=== PATIENT | female | born 1995 | race Caucasian/White ===

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

== ENCOUNTER 2018-06-08 14:27 | Emergency (ER) | payer MEDICAID ==
[2018-06-08 14:47] VITALS: BP 110/63
--- NOTE | 2018-06-08 15:20 | RADIOLOGY REPORT (SQ) ---
EXAM DESCRIPTION: FOOT RIGHT COMPLETE COMPLETED DATE/TIME: 06/08/2018 3:11 pm REASON FOR STUDY: Flipped last night; Pain and swelling to toes COMPARISON: None. NUMBER OF VIEWS: Three views. TECHNIQUE: AP, lateral and oblique radiographic images acquired of the right foot. LIMITATIONS: None. FINDINGS: MINERALIZATION: Normal. BONES: No acute fracture or dislocation. No worrisome bone lesions. JOINTS: No effusions. SOFT TISSUES: No soft tissue swelling. No foreign body. OTHER: No other significant finding. IMPRESSION: NEGATIVE STUDY OF THE RIGHT FOOT. NO RADIOGRAPHIC EVIDENCE OF ACUTE INJURY. TECHNICAL DOCUMENTATION: JOB ID: [id number] [employer]- All Rights Reserved Reading location - IP/workstation name: [email or web address]
[2018-06-08] MEDS ORDERED: IBUPROFEN 600 MG TABLET PO ONE (15:39)
--- NOTE | 2018-06-08 15:48 | ER Document Report ---
ED Extremity Problem, Lower - General Chief Complaint: Foot Injury Stated Complaint: RIGHT FOOT INJURY Time Seen by Provider: 06/08/18 15:18 Mode of Arrival: Ambulatory Information source: Patient Notes: 3-year-old female presents to ED for complaint of pain to the right foot and toes. 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 She states that it has been painful to walk on her foot since then. She is alert oriented respirations regular and unlabored speaking in full sentences and is able to walk with a limp. There is minimal swelling to the foot no bruising no deformity noted. TRAVEL OUTSIDE OF THE [place] IN LAST 30 DAYS: No - HPI Location: Foot - Right Occurred: Yesterday Where: Work Onset/Duration: Sudden, Persistent Quality of pain: Achy, Dull Severity: Moderate Pain Level: 4 Context: Wearing shoes Recent injury: Yes Associated symptoms: Painful ambulation Exacerbated by: Hanging down, Movement, Walking Relieved by: Elevation, Ice, Rest - Related Data Allergies/Adverse Reactions: No Known Allergies Allergy (Verified 06/08/18 14:32) Past Medical History - General Information source: Patient - Social History Smoking Status: Current Every Day Smoker Cigarette use (# per day): Yes - 1/2-1 pack/day Chew tobacco use (# tins/day): No Smoking Education Provided: Yes - 4 minutes Frequency of alcohol use: Social - 1-2 times a week Drug Abuse: None Occupation: Dancer Lives with: Family Family History: Reviewed & Not Pertinent Patient has suicidal ideation: No Patient has homicidal ideation: No - Past Medical History Cardiac Medical History: Reports: None Pulmonary Medical History: Reports: None EENT Medical History: Reports: None Neurological Medical History: Reports: None Endocrine Medical History: Reports: None Renal/ Medical History: Reports: None Malignancy Medical History: Reports: None GI Medical History: Reports: None Musculoskeletal Medical History: Reports Hx Musculoskeletal Trauma Skin Medical History: Reports Hx Cellulitis Psychiatric Medical History: Reports: Hx Bipolar Disorder, Hx Depression Traumatic Medical History: Reports: Hx Fractures - Ankle Infectious Medical History: Reports: None - Immunizations Hx Diphtheria, Pertussis, Tetanus Vaccination: Yes - 07/10/13 Hx Pneumococcal Vaccination: 07/10/13 Review of Systems - Review of Systems Constitutional: No symptoms reported EENT: No symptoms reported Cardiovascular: No symptoms reported Respiratory: No symptoms reported Gastrointestinal: No symptoms reported Genitourinary: No symptoms reported Female Genitourinary: No symptoms reported Musculoskeletal: Other - Pain minimal swelling to right foot Skin: No symptoms reported Hematologic/Lymphatic: No symptoms reported Neurological/Psychological: No symptoms reported -: Yes All other systems reviewed and negative Physical Exam - Vital signs Vitals: Temp Pulse Resp BP Pulse Ox 98.7 F 80 16 110/63 97 06/08/18 14:46 06/08/18 14:46 06/08/18 14:46 06/08/18 14:46 06/08/18 14:46 Interpretation: Normal - General General appearance: Appears well, Alert - HEENT Head: Normocephalic, Atraumatic Eyes: Normal Pupils: PERRL - Respiratory Respiratory status: No respiratory distress Chest status: Nontender Breath sounds: Normal Chest palpation: Normal - Cardiovascular Rhythm: Regular Heart sounds: Normal auscultation Murmur: No - Abdominal Inspection: Normal Distension: No distension Bowel sounds: Normal Tenderness: Nontender Organomegaly: No organomegaly - Back Back: Normal, Nontender - Extremities General upper extremity: Normal inspection, Nontender, Normal color, Normal ROM, Normal temperature General lower extremity: Normal color, Normal ROM, Normal temperature. No: Ochoa's sign Foot: Tender, Ecchymosis, Edema - Minimal, Metatarsal compress. pain - minimal, No evidence of FB. No: Abrasion, Deformity, Instability, Laceration, Nail injury, Navicular tenderness, Puncture wound, Tender 5th metatarsal, Unable to bear weight - Painful ambulation - Neurological Neuro grossly intact: Yes Cognition: Normal Orientation: AAOx4 [place] Coma Scale Eye Opening: Spontaneous Valeria Coma Scale Verbal: Oriented Valeria Coma Scale Motor: Obeys Commands [place] Coma Scale Total: 15 Speech: Normal Motor strength normal: LUE, RUE, LLE, RLE Sensory: Normal - Psychological Associated symptoms: Normal affect, Normal mood - Skin Skin Temperature: Warm Skin Moisture: Dry Skin Color: Ecchymosis - Minimal bruising Course - Re-evaluation Re-evalutation: 06/08/18 15:49 Discussed x-rays with patient. X-rays show that there is no broken bones. Patient stated she would like to go back to work tomorrow. Elevation ice and ibuprofen discussed with patient. Patient verbalized understanding and agreement with treatment plan patient was discharged home. - Vital Signs Vital signs: Temp Pulse Resp BP Pulse Ox 98.7 F 80 16 110/63 97 06/08/18 14:46 06/08/18 14:46 06/08/18 14:46 06/08/18 14:46 06/08/18 14:46 - Diagnostic Test Radiology reviewed: Image reviewed, Reports reviewed Discharge - Discharge Clinical Impression: Contusion of right foot including toes Qualifiers: Encounter type: initial encounter Qualified Code(s): S90.31XA - Contusion of right foot, initial encounter; S90.121A - Contusion of right lesser toe(s) without damage to nail, initial encounter Condition: Stable Disposition: HOME, SELF-CARE Instructions: Family Physicians / Practices Additional Instructions: CONTUSION: Your injury has resulted in a contusion -- a crushing of the deep tissues. No injury to important structures was detected during the physician's exam. Contusions vary in the amount of pain they cause, and in the length of time required for healing. Typically, the area will become bruised, and will remain painful to touch for two or three weeks. However, most patients are back to working and playing within a few days. After the initial period of rest and cold-packs, your symptoms (together with the doctor's recommendations) will determine how rapidly you can get back to full activity. Usually this means "do what feels okay, but don't do things that hurt." If re-examination was recommended, it's important to follow up as instructed. Call the doctor or return any time if pain increases, if swelling becomes severe, if you develop numbness or weakness in an injured extremity, or if any other alarming symptoms occur. USE OF TYLENOL (ACETAMINOPHEN): Acetaminophen may be taken for pain relief or fever control. It's much safer than aspirin, offering a wider range of "safe" dosages. It is safe during . Some brand names are Tylenol, Panadol, Datril, Anacin 3, Tempra, and Liquiprin. Acetaminophen can be repeated every four hours. The following are maximum recommended dosages: WEIGHT Dose Drops Elixir Ch ewable(80mg) (LBS.) drprs=droppers tsp=teaspoon 6 40 mg 0.4 ml (1/2) 6-11 80 mg 0.8 ml (full) tsp 1 tab 12-16 120 mg 1 1/2 drprs 3/4 tsp 1 1/2 tabs 17-23 160 mg 2 drprs 1 tsp 2 tabs 24-30 240 mg 3 drprs 1 1/2 tsp 3 tabs 30-35 320 mg 2 tsp 4 tabs 36-41 360 mg 2 1/4 tsp 4 1/2 tabs 42-47 400 mg 2 1/2 tsp 5 tabs 48-53 480 mg 3 tsp 6 tabs 54-59 520 mg 3 1/4 tsp 6 1/2 tabs 60-64 560 mg 3 1/2 tsp 7 tabs 65-70 600 mg 3 3/4 tsp 7 1/2 tabs 71-76 640 mg 4 tsp 8 tabs 77-82 720 mg 4 1/2 tsp 9 tabs 83-88 800 mg 5 tsp 10 tabs >89 pounds or adults 650 mg to 900 mg Acetaminophen can be repeated every four hours. Maximum dose not to exceed 4000 mg a day. These maximum recommended dosages are slightly higher than the dosages written on the product container, but these dosages are very safe and below the toxic dosage for acetaminophen. ICE & ELEVATION: Apply ice packs frequently against the painful area. Many different schedules are recommended, such as "20 minutes on, 20 minutes off" or "one hour ice, two hours rest." If you need to work, you may need to go longer between ice treatments. You should plan to have the area ice packed AT LEAST one-fourth of the time. The ice should be applied over the wrap, tape, or splint, or over a layer of cloth -- not directly against the skin. Some ice bags have a built-in cloth and can be put directly on the skin. Your injured part should be elevated as much as possible over the next 48 hours. Try to keep the injury above the level of the heart. Avoid use of the injured area. Elevation and rest will decrease the swelling. USE OF CPXD-NDC-CUBGPGE IBUPROFEN: Ibuprofen (Advil, Nuprin, Medipren, Motrin IB) is a medication for fever and pain control. In addition, it has anti- inflammatory effects which may be beneficial, especially in the treatment of injuries. It's best to take ibuprofen with food. Persons with ulcer disease or allergy to aspirin should notify their physician of this before taking ibuprofen. Ibuprofen can be given every four to six hours, for a total of four doses daily. Age Pain or fever dose Antiinflammatory dose 6-8 yr 200 mg (1 tab) 200 mg (1 tab) 9-11 yr 200 mg (1 tab) 200-400 mg (1-2 tab) 11-14 yr 200-400 mg (1-2 tab) 400 mg (2 tab) 15-adult 400 mg (2 tab) 600 mg (3 tab) FOLLOW-UP CARE: If you have been referred to a physician for follow-up care, call the physicians office for an appointment as you were instructed or within the next two days. If you experience worsening or a significant change in your symptoms, notify the physician immediately or return to the Emergency Department at any time for re-evaluation. Forms: Smoking Cessation Education, Return to Work Referrals: [facility] [Provider Group] - Follow up as needed
== END 2018-06-08 15:45 | disposition home or self-care (01) ==
LOC: ER 14:27
PROC: HZ31ZZZ Individual Counseling for Substance Abuse Treatment, Behavioral (ICD-10-PCS; principal; 2018-06-08)
DX: S90.31XA Contusion of right foot, initial encounter (principal); S90.121A Contusion of right lesser toe(s) without damage to nail, initial encounter; W22.09XA Striking against other stationary object, initial encounter; Y93.41 Activity, dancing; Y99.0 Civilian activity done for income or pay; F17.210 Nicotine dependence, cigarettes, uncomplicated; Z87.81 Personal history of (healed) traumatic fracture
CPT/HCPCS: 99406; 99283; 73630; J3490

== ENCOUNTER 2018-07-13 03:29 | Emergency (ER) | payer MEDICAID ==
[2018-07-13] MEDS ORDERED: LIDOCAINE 4% TRANSPARENT DRESSING 5 GM KIT TP ONE (05:46)
[2018-07-13] MEDS ORDERED: SULFAMETHOXAZOLE/TRIMETHOPRIM 800-160 MG TABLET PO ONE (05:47)
[2018-07-13] MEDS ORDERED: CEPHALEXIN 500 MG CAPSULE PO ONE (05:47)
--- NOTE | 2018-07-13 05:48 | ER Document Report ---
HPI - HPI Time Seen by Provider: 07/13/18 05:37 Pain Level: 4 Context: Patient is a 23-year-old female that comes to the emergency department for chief complaint of pain, redness, swelling over the left face. She states she has had an irritated area she thought was a pimple therefore a while but over the past 2 days it has become tender, red, and spread. She denies fever or chills. She has had abscesses before. She denies any other complaints. She denies pregn helen. LMP was last month. She is currently being treated for hepatitis C. - CONSTITUTIONAL Constitutional: DENIES: Fever, Chills - NEURO Neurology: REPORTS: Headache - REPRODUCTIVE LMP: 06/03 Reproductive: DENIES: : Past Medical History - General Information source: Patient - Social History Smoking Status: Current Some Day Smoker Lives with: Spouse/Significant other Family History: Reviewed & Not Pertinent Patient has suicidal ideation: No Patient has homicidal ideation: No Renal/ Medical History: Denies: Hx Peritoneal Dialysis Musculoskeletal Medical History: Reports Hx Musculoskeletal Trauma Skin Medical History: Reports Hx Cellulitis Psychiatric Medical History: Reports: Hx Bipolar Disorder, Hx Depression Traumatic Medical History: Reports: Hx Fractures - Ankle Infectious Medical History: Reports: Hx Hepatitis - Immunizations Hx Diphtheria, Pertussis, Tetanus Vaccination: Yes - 07/10/13 Hx Pneumococcal Vaccination: 07/10/13 Vertical Provider Document - CONSTITUTIONAL General Appearance: WD/WN, No Apparent Distress - INFECTION CONTROL TRAVEL OUTSIDE OF THE [place] IN LAST 30 DAYS: No - HEENT HEENT: Atraumatic, Normal ENT Exam, Normocephalic, PERRLA. negative: Conjuctival Injection - NECK Neck: Normal Inspection - RESPIRATORY Respiratory: Breath Sounds Normal, No Respiratory Distress - CARDIOVASCULAR Cardiovascular: Regular Rate, Regular Rhythm - GI/ABDOMEN Gastrointestinal: Abdomen Soft, Abdomen Non-Tender - BACK Back: Normal Inspection - MUSCULOSKELETAL/EXTREMETIES Musculoskeletal/Extremeties: MAEW, FROM, Non-Tender - NEURO Level of Consciousness: Awake, Alert, Appropriate - DERM Integumentary: Abscess - Left zygomatic area with a very small area of induration and fluctuance with some surrounding erythema consistent with cellulitis extending up towards the bottom of the left eyelid. Course - Re-evaluation Re-evalutation: Patient does have evidence of a small abscess over the zygomatic area with some surrounding cellulitis extending up to the bottom of the left eyelid but not including the eye. No visual concerns or symptoms reported. No fever. Patient is very well-appearing otherwise. Discussed with patient, decision was made to perform incision and drainage with an 18-gauge needle, this was performed, I did express purulent drainage, patient was placed on antibiotics, she was given instructions, follow-up and recommendations, and strict return precautions which were discussed in detail. Patient and significant other state understanding and agreement. - Vital Signs Vital signs: Temp Pulse Resp BP Pulse Ox 98.2 F 74 16 116/60 100 07/13/18 03:36 07/13/18 03:36 07/13/18 03:36 07/13/18 03:36 07/13/18 03:36 Procedures - Incision and Drainage Left zygomatic area Type: Single Anesthetic type: Other - LMX I&D procedure: Shurclens applied, Sterile dressing applied Incision Method: Incision made with needle Amount/type of drainage: Small amount of purulent drainage and small amount of bleeding Discharge - Discharge Clinical Impression: Cellulitis and abscess of face Condition: Stable Disposition: HOME, SELF-CARE Additional Instructions: There is an abscess on the face which has been drained, keep this area clean, clean with soap and water, apply absorbent dressing over the area. Take your antibiotics as prescribed to completion. Follow-up with primary care. Return immediately if you worsen including spreading redness, increased pain, fever/chills, or any other concerning symptoms. Prescriptions: Cephalexin Monohydrate [Keflex 500 mg Capsule] 500 mg PO QID #28 capsule Sulfamethoxazole/Trimethoprim [Bactrim Ds Tablet] 1 each PO BID #14 tablet Forms: Return to Work Referrals: ELIANE HOLLIS MD [Primary Care Provider] - Follow up as needed
[2018-07-13 06:52] VITALS: BP 112/66
== END 2018-07-13 06:58 | disposition home or self-care (01) ==
LOC: ER 03:29
PROC: 0H91XZZ Drainage of Face Skin, External Approach (ICD-10-PCS; principal; 2018-07-13)
DX: L02.01 Cutaneous abscess of face (principal); L03.211 Cellulitis of face; R51 Headache; R22.0 Localized swelling, mass and lump, head; F17.200 Nicotine dependence, unspecified, uncomplicated
CPT/HCPCS: 99283; 10060; J3490 ×2

== ENCOUNTER 2018-07-19 03:05 | Emergency (ER) | payer MEDICAID ==
[2018-07-19 03:50] LABS: ABSOLUTE EOSINOPHILS # (AUTO) 0.5 10^3/uL (0.0-0.6); ABSOLUTE LYMPHOCYTES (AUTO) 3.2 10^3/uL (0.5-4.7); ABSOLUTE MONOCYTES (AUTO) 0.6 10^3/uL (0.1-1.4); ABSOLUTE NEUT (AUTO) 2.8 10^3/uL (1.7-8.2); BASOPHILS % (AUTO) 0.2 % (0-2); EOSINOPHILS % (AUTO) 6.7 % (0-6); HEMATOCRIT 41.9 % (36.0-47.0); HEMOGLOBIN 14.5 g/dL (12.0-15.5); LYMPHOCYTES % (AUTO) 45.1 % (13-45); MEAN CORPUSCULAR HEMOGLOBIN 31.5 pg (27.0-33.4); MEAN CORPUSCULAR HGB CONC 34.6 g/dL (32.0-36.0); MEAN CORPUSCULAR VOLUME 91 fl (80-97); MONOCYTES % (AUTO) 8.6 % (3-13); PLATELET COUNT 269 10^3/uL (150-450); RED BLOOD COUNT 4.61 10^6/uL (3.72-5.28); RED CELL DISTRIBUTION WIDTH 12.9 % (11.5-14.0); SEGMENTED NEUTROPHILS % (AUTO) 39.4 % (42-78); TOTAL CELLS COUNTED % (AUTO) 100 %; WHITE BLOOD COUNT 7.1 10^3/uL (4.0-10.5)
[2018-07-19 03:55] LABS: APPEARANCE,URINE SLIGHTLY-CLOUDY; BILIRUBIN,URINE NEGATIVE (NEGATIVE); COLOR,URINE YELLOW; GLUCOSE, URINE NEGATIVE (NEGATIVE); KETONES,URINE NEGATIVE (NEGATIVE); LEUKOCYTE ESTERASE,URINE SMALL (NEGATIVE); NITRITE,URINE NEGATIVE (NEGATIVE); PROTEIN,URINE 30 mg/dL (NEGATIVE); URINE SPECIFIC GRAVITY 1.036
--- NOTE | 2018-07-19 05:04 | ER Document Report ---
ED General - General Chief Complaint: Vag Bleeding, +preg <12wks Stated Complaint: POSSIBLE MISCARRAIGE Time Seen by Provider: 07/19/18 03:43 Primary Care Provider: ELIANE HOLLIS MD [Primary Care Provider] - Follow up as needed TRAVEL OUTSIDE OF THE [place] IN LAST 30 DAYS: No - HPI Notes: Patient presents to the emergency department for evaluation. She states she had her last menstrual period on June 03. She states she took 3 tests last week and they were positive. She states earlier today she had some bright red vaginal bleeding. It was only a small amount. She denies any pain at this time. Her bleeding was at 1400 hrs. She has not followed up with OB. - Related Data Allergies/Adverse Reactions: No Known Allergies Allergy (Verified 07/19/18 03:11) Past Medical History - General Information source: Patient Last Menstrual Period: 06/03/18 - Social History Smoking Status: Former Smoker Frequency of alcohol use: Social Drug Abuse: None Family History: Reviewed & Not Pertinent Patient has suicidal ideation: No Patient has homicidal ideation: No Renal/ Medical History: Denies: Hx Peritoneal Dialysis GI Medical History: Reports: Hx Hepatitis Musculoskeletal Medical History: Reports Hx Musculoskeletal Trauma Skin Medical History: Reports Hx Cellulitis Psychiatric Medical History: Reports: Hx Bipolar Disorder, Hx Depression Traumatic Medical History: Reports: Hx Fractures - Ankle Infectious Medical History: Reports: Hx Hepatitis - Immunizations Hx Diphtheria, Pertussis, Tetanus Vaccination: Yes - 07/10/13 Hx Pneumococcal Vaccination: 07/10/13 Review of Systems - Review of Systems Constitutional: No symptoms reported EENT: No symptoms reported Cardiovascular: No symptoms reported Respiratory: No symptoms reported Gastrointestinal: No symptoms reported Genitourinary: No symptoms reported Female Genitourinary: See HPI Musculoskeletal: No symptoms reported Skin: No symptoms reported Neurological/Psychological: No symptoms reported Physical Exam - Vital signs Vitals: Temp Pulse Resp BP Pulse Ox 97.9 F 78 16 125/67 98 07/19/18 03:09 07/19/18 03:09 07/19/18 03:09 07/19/18 03:09 07/19/18 03:09 - Notes Notes: Vital signs reviewed, please refer to chart. Patient is normocephalic, atraumatic. Pupils equal round, reactive to light. Neck is supple without meningismus. Heart is regular rate and rhythm. Lungs are clear to auscultation bilaterally. Abdomen is soft, nontender, normoactive bowel sounds throughout. Extremities without cyanosis, clubbing, edema. Peripheral pulses are equal. Skin is warm and dry. Patient is awake, alert, neurological exam is nonfocal. Course - Re-evaluation Re-evalutation: 07/19/18 05:02 Patient presents to the emergency department for evaluation. She reports 3+ home test last week. She states her last menstrual period was June 03. Laboratory investigations confirm a completely negative beta hCG on serum. It is difficult to reconcile this with positive test at home. My suspicion is that she may have administered these tests incorrectly. At any rate, she has no evidence of recent at this time. We will refer her on to [facility]. She is told to follow complete pelvic rest instructions. She is no longer bleeding at this time. She is to return to the ED with worsening or new concerning symptoms of any sort. - Vital Signs Vital signs: Temp Pulse Resp BP Pulse Ox 97.9 F 78 16 125/67 98 07/19/18 03:09 07/19/18 03:09 07/19/18 03:09 07/19/18 03:09 07/19/18 03:09 - Laboratory Result Diagrams: 07/19/18 03:33 Laboratory results interpreted by me: 07/19/18 07/19/18 03:33 03:33 Seg Neutrophils % 39.4 L Lymphocytes % 45.1 H Eosinophils % 6.7 H Urine Protein 30 H Urine Blood LARGE H Urine Urobilinogen 4.0 H Ur Leukocyte Esterase SMALL H Urine Ascorbic Acid 40 H Discharge - Discharge Clinical Impression: Abnormal uterine and vaginal bleeding, unspecified Condition: Stable Disposition: HOME, SELF-CARE Instructions: Vaginal Bleeding ([facility]) Additional Instructions: Follow complete pelvic rest instructions -no douching, no tampons, no sexual intercourse. Follow-up with [facility]. If you develop bleeding worse than 1 pad an hour, or any other new or concerning symptoms, return to the emergency department for evaluation. Referrals: ELIANE HOLLIS MD [Primary Care Provider] - Follow up as needed ASTRID FOX MD [ACTIVE STAFF] - Follow up as needed
[2018-07-19 05:20] VITALS: BP 101/53
== END 2018-07-19 05:19 | disposition home or self-care (01) ==
LOC: ER 03:05
DX: N93.9 Abnormal uterine and vaginal bleeding, unspecified (principal); Z87.891 Personal history of nicotine dependence
CPT/HCPCS: 36415; 81001; 84702; 85025; 86900; 86901; 99284

== ENCOUNTER 2018-08-27 06:13 | Emergency (ER) | payer SELFPAY ==
[2018-08-27] MEDS ORDERED: BENZONATATE 100 MG CAPSULE PO ONE (06:58)
[2018-08-27] MEDS ORDERED: IBUPROFEN 600 MG TABLET PO ONE (06:58)
--- NOTE | 2018-08-27 07:04 | ER Document Report ---
Addendum entered and electronically signed by SANDY BELL FNP 08/27/18 08:09: Discharge - Discharge Clinical Impression: Cough, Congestion of respiratory tract, Bronchitis Condition: Stable Disposition: HOME, SELF-CARE Additional Instructions: Today you were seen in the emergency department for cough. We have obtained a chest x-ray which was negative at this time. Your diagnosis today is acute bronchitis. Bronchitis can last 3 to 6 weeks. Please avoid cigarette smoking or being around smoke or other allergens as this can make your symptoms worse. It is normal to have cough with sputum that is clear, yellow, green, having body aches, fever and chills. Take hjfk-rxr-ndthbei ibuprofen or Tylenol as needed for your pain or discomfort. I am prescribing you Tessalon Perles, this is a medication that you can take every 8 hours as needed for your cough. Continue to use obrl-mlj-vuzxnjm decongestions. Please return to the emergency department if you have any worsening symptoms to include shortness of breath, chest pain, or any worsening signs or symptoms. Bronchitis You have acute bronchitis. This disease is an infection or inflammation of the air passageways in your lungs. Symptoms usually include cough, low grade fever, shortness of breath, and wheezing. The cough usually persists for a couple of weeks. Most cases of bronchitis get better without antibiotics. We prescribe antibiotics when we believe bacteria are damaging your airways, or if there's high risk the bronchitis will worsen into pneumonia. Increase your fluid intake. A cool mist humidifier may make your lungs more comfortable. An expectorant (cough medicine that loosens phlegm) can help. If you smoke, STOP!!! Recovery from bronchitis can be somewhat slow, but you should see improvement within a day or two. Repeated episodes of bronchitis may result in lung damage -- for example, chronic bronchitis, recurrent pneumonias, or emphysema. Call the doctor if you develop increasing fever, shortness of breath, chest pain, bloody sputum, or otherwise worsen. If you have not improved at all after several days, contact the physician. Prescriptions: Benzonatate [Tessalon Perles 100 mg Capsule] 100 mg PO Q8HP PRN #40 capsule PRN Reason: Referrals: ELIANE HOLLIS MD [Primary Care Provider] - Follow up as needed Original Note: HPI - HPI Time Seen by Provider: 08/27/18 06:40 Pain Level: 5 Context: Patient is a 23-year-old female who presents to the emergency department with a chief complaint of cough. Patient states that she has had a nonproductive cough for 4 days, congestion with significant amount of nasal drainage. Patient complains of bilateral ear pain, sore throat, and nausea. Patient has had chills but is unsure if she has had a fever. Has attempted jdvx-nwr-tphluty Mucinex without relief. Patient reports a history of childhood asthma but no current medical problems. - REPRODUCTIVE Reproductive: DENIES: : Past Medical History - General Information source: Patient - Social History Smoking Status: Current Every Day Smoker Frequency of alcohol use: Social Drug Abuse: Marijuana Lives with: Spouse/Significant other Family History: Reviewed & Not Pertinent - Past Medical History Cardiac Medical History: Reports: None Pulmonary Medical History: Reports: None EENT Medical History: Reports: None Neurological Medical History: Reports: None Endocrine Medical History: Reports: None Renal/ Medical History: Reports: None. Denies: Hx Peritoneal Dialysis Malignancy Medical History: Reports: None GI Medical History: Reports: Hx Hepatitis Musculoskeletal Medical History: Reports Hx Musculoskeletal Trauma Skin Medical History: Reports Hx Cellulitis Psychiatric Medical History: Reports: Hx Bipolar Disorder, Hx Depression Traumatic Medical History: Reports: Hx Fractures - Ankle Infectious Medical History: Reports: Hx Hepatitis Surgical Hx: Negative - Immunizations Hx Diphtheria, Pertussis, Tetanus Vaccination: Yes - 07/10/13 Hx Pneumococcal Vaccination: 07/10/13 Vertical Provider Document - CONSTITUTIONAL Agree With Documented VS: Yes Exam Limitations: No Limitations General Appearance: No Apparent Distress - INFECTION CONTROL TRAVEL OUTSIDE OF THE [place] IN LAST 30 DAYS: No - HEENT HEENT: Atraumatic, Normocephalic, PERRLA Notes: Right ear canal slightly reddened, TM normal. - NECK Neck: Normal Inspection Notes: No lymphadenopathy. - RESPIRATORY Respiratory: Rhonchi - Rhonchi cleared with cough - CARDIOVASCULAR Cardiovascular: Regular Rate - GI/ABDOMEN Gastrointestinal: Abdomen Soft, Abdomen Non-Tender - NEURO Level of Consciousness: Awake, Alert, Appropriate - DERM Integumentary: Warm, No Rash Course - Re-evaluation Re-evalutation: 08/27/18 08:06 The chest x-ray was negative for pneumonia or any acute abnormality. Informed patient that her diagnosis today is bronchitis. Patient does smoke informed patient that smoking is an irritant and can make the bronchitis symptoms worse. Will prescribe Tessalon Perles for her cough. Please return to the emergency department for any worsening signs or symptoms to include chest pain, shortness of breath, high fevers or any worsening signs or symptoms. Patient instructed to take cges-rzr-zrgxmdx Tylenol or ibuprofen as needed for her body aches and pain. - Vital Signs Vital signs: Temp Pulse Resp BP Pulse Ox 98.3 F 95 24 H 109/71 95 08/27/18 06:23 08/27/18 06:23 08/27/18 06:23 08/27/18 06:23 08/27/18 06:23 - Diagnostic Test Radiology reviewed: Image reviewed, Reports reviewed Discharge - Discharge Clinical Impression: Cough, Congestion of respiratory tract, Bronchitis Condition: Stable Disposition: HOME, SELF-CARE Additional Instructions: Today you were seen in the emergency department for cough. We have obtained a chest x-ray which was negative at this time. Your diagnosis today is acute bronchitis. Bronchitis can last 3 to 6 weeks. Please avoid cigarette smoking or being around smoke or other allergens as this can make your symptoms worse. It is normal to have cough with sputum that is clear, yellow, green, having body aches, fever and chills. Take rwhr-cuk-ehxynmg ibuprofen or Tylenol as needed for your pain or discomfort. I am prescribing you Tessalon Perles, this is a medication that you can take every 8 hours as needed for your cough. Continue to use wroo-odq-opwqmjh decongestions. Please return to the emergency department if you have any worsening symptoms to include shortness of breath, chest pain, or any worsening signs or symptoms. Bronchitis You have acute bronchitis. This disease is an infection or inflammation of the air passageways in your lungs. Symptoms usually include cough, low grade fever, shortness of breath, and wheezing. The cough usually persists for a couple of weeks. Most cases of bronchitis get better without antibiotics. We prescribe antibiotics when we believe bacteria are damaging your airways, or if there's high risk the bronchitis will worsen into pneumonia. Increase your fluid intake. A cool mist humidifier may make your lungs more comfortable. An expectorant (cough medicine that loosens phlegm) can help. If you smoke, STOP!!! Recovery from bronchitis can be somewhat slow, but you should see improvement within a day or two. Repeated episodes of bronchitis may result in lung damage -- for example, chronic bronchitis, recurrent pneumonias, or emphysema. Call the doctor if you develop increasing fever, shortness of breath, chest pain, bloody sputum, or otherwise worsen. If you have not improved at all after several days, contact the physician. Prescriptions: Benzonatate [Tessalon Perles 100 mg Capsule] 100 mg PO Q8HP PRN #40 capsule PRN Reason: Referrals: ELIANE HOLLIS MD [Primary Care Provider] - Follow up as needed
--- NOTE | 2018-08-27 07:58 | RADIOLOGY REPORT (SQ) ---
CLINICAL HISTORY: cough COMPARISON: June 27, 2016. TECHNIQUE: XR CHEST 2 VIEWS 08/27/2018 6:57 AM CDT FINDINGS: Cardiac silhouette is normal in size. Lungs are clear without consolidation, atelectasis, mass or edema. There is no pleural effusion. There is no pneumothorax. There are no acute osseous findings. IMPRESSION: Clear lungs.
[2018-08-27 08:17] VITALS: BP 116/54
== END 2018-08-27 08:17 | disposition home or self-care (01) ==
LOC: ER 06:13
DX: J40 Bronchitis, not specified as acute or chronic (principal); R05 Cough; R09.89 Other specified symptoms and signs involving the circulatory and respiratory systems; H92.03 Otalgia, bilateral; J02.9 Acute pharyngitis, unspecified; R11.0 Nausea; R68.83 Chills (without fever); F17.200 Nicotine dependence, unspecified, uncomplicated; F12.10 Cannabis abuse, uncomplicated
CPT/HCPCS: 71046; 99283

== ENCOUNTER 2018-09-18 23:46 | Emergency (ER) | payer SELFPAY | END 2018-09-19 01:44 | disposition left against medical advice (07) | LOC: ER 23:46 | DX: Z53.21 Procedure and treatment not carried out due to patient leaving prior to being seen by health care provider (principal) ==

== ENCOUNTER 2020-05-15 14:20 | Emergency (ER) | payer SELFPAY ==
--- NOTE | 2020-05-15 15:16 | ER Document Report ---
ED GI/ - General Chief Complaint: Nausea/Vomiting Stated Complaint: DEHYDRATION Time Seen by Provider: 05/15/20 14:30 Primary Care Provider: ELIANE HOLLIS MD [Primary Care Provider] - Follow up as needed TRAVEL OUTSIDE OF THE [place] IN LAST 30 DAYS: No - HPI Notes: Patient is a 24-year-old female with a history of disease, anxiety, and depression who presents for nausea and vomiting after binge drinking last night. Patient states he drank a lot of Omar Ochoa and had multiple shots because of increased stress in her life. Patient states she is stressed because her dad a stripper who is also her friend. She states she had multiple episodes of vomiting last night as well as this morning when she woke up around 10 AM. Patient states she felt so weak and states that she called 911. She was given 600 mL of LR and a dose of Zofran in route by EMS and she has reports that she is feeling much better. She denies any chest pain, shortness of breath, abdomi nal pain, and fever. Patient currently takes fluoxetine for her anxiety and depression and has a therapist at [facility]. - Related Data Allergies/Adverse Reactions: No Known Allergies Allergy (Verified 07/19/18 03:11) Past Medical History - General Information source: Patient - Social History Smoking Status: Current Every Day Smoker Frequency of alcohol use: Social Drug Abuse: Marijuana Family History: Reviewed & Not Pertinent Renal/ Medical History: Denies: Hx Peritoneal Dialysis GI Medical History: Reports: Hx Hepatitis Musculoskeletal Medical History: Reports Hx Musculoskeletal Trauma Skin Medical History: Reports Hx Cellulitis Psychiatric Medical History: Reports: Hx Bipolar Disorder, Hx Depression Traumatic Medical History: Reports: Hx Fractures - Ankle Infectious Medical History: Reports: Hx Hepatitis - Immunizations Hx Diphtheria, Pertussis, Tetanus Vaccination: Yes - 07/10/13 Hx Pneumococcal Vaccination: 07/10/13 Review of Systems - Review of Systems Constitutional: No symptoms reported EENT: No symptoms reported Cardiovascular: No symptoms reported Respiratory: No symptoms reported Gastrointestinal: See HPI Genitourinary: No symptoms reported Female Genitourinary: No symptoms reported Musculoskeletal: No symptoms reported Skin: No symptoms reported Hematologic/Lymphatic: No symptoms reported Neurological/Psychological: No symptoms reported Physical Exam - Vital signs Vitals: Temp Pulse Resp BP Pulse Ox 97.9 F 64 18 134/76 H 100 05/15/20 14:39 05/15/20 14:39 05/15/20 14:39 05/15/20 14:39 05/15/20 14:39 - Notes Notes: PHYSICAL EXAMINATION: VITALS: Vitals reviewed and within normal limits. GENERAL: Well-appearing, well-nourished and in no acute distress. HEAD: Atraumatic, normocephalic. EYES: Pupils equal, round, and reactive to light, extraocular movements intact, sclera anicteric, conjunctiva are normal. ENT: Nares patent. Moist mucous membranes. Oropharynx clear without exudates. NECK: Normal range of motion, supple without lymphadenopathy. LUNGS: Breath sounds clear to auscultation bilaterally and equal. No wheezes, rales, or rhonchi. HEART: Regular, rate, and rhythm without murmurs. ABDOMEN: Soft, nontender, normoactive bowel sounds. No guarding, no rebound. No masses appreciated. EXTREMITIES: Normal range of motion, no pitting or edema. No cyanosis. NEUROLOGICAL: No focal neurological deficits. Moves all extremities spontaneously and on command. PSYCH: Normal mood, normal affect. SKIN: Warm, Dry, normal turgor, no rashes or lesions noted. Course - Re-evaluation Re-evalutation: Patient is a 25-year-old female who is brought in by EMS for nausea and vomiting after binge drinking last night. Patient was given fluids and Zofran in route by EMS and she reports she is now feeling much better. Vital signs are stable and within normal limits. On exam, abdomen is soft and nontender with normal bowel sounds. Patient denies any symptoms prior to her binge drinking episode. Low clinical suspicion for any acute life-threatening etiology based on exam and history including acute cholecystitis, SBO, appendicitis, nephrolithiasis, or pylonephritis. Given my low clinical suspicion for any acute life-threatening etiology, I do not feel advanced abdominal imaging or laboratory testing is indicated at this time. Patient offered psychiatric services due to her increased stress and anxiety but patient has declined. Will PO challenge patient here in the ED. Patient tolerated PO challenge without difficulty. At this time will discharge with return precautions and follow-up recommendations. Verbal discharge instructions given a the bedside and opportunity for questions given. Patient is in agreement with this plan and has verbalized understanding of return precautions and the need for primary care follow-up. - Vital Signs Vital signs: Temp Pulse Resp BP Pulse Ox 97.9 F 64 18 134/76 H 100 05/15/20 14:39 05/15/20 14:39 05/15/20 14:39 05/15/20 14:39 05/15/20 14:39 - Laboratory Results Critical Laboratory Results Reviewed: No Critical Results - Radiology Results Critical Radiology Results Reviewed: No Critical Results Discharge - Discharge Clinical Impression: Alcohol consumption binge drinking Nausea and vomiting Qualifiers: Vomiting type: unspecified Vomiting Intractability: non-intractable Qualified Code(s): R11.2 - Nausea with vomiting, unspecified Condition: Stable Disposition: HOME, SELF-CARE Additional Instructions: Acute Alcohol Intoxication You can from drinking a large amount of alcohol rapidly! Further, there's the risk of falls, traffic accidents, and fights. A high portion (about 50 percent) of the serious injuries seen in hospital emergency rooms are caused by alcohol. Alcohol overdosage is usually due to an underlying emotional or psychiatric problem. You may benefit from counselling. If "binge" drinking is an ongoing problem for you, or if you drink ANY AMOUNT of alcohol EVERY day, you most likely have a tendency to alcoholism. You should avoid alcohol totally. We can refer you for treatment. Persons with alcohol problems are often also prone to other addictions -- you should discuss any use of medications or drugs with the doctor. You should be watched at home for the next several hours by someone who has not been drinking. Get extra fluids for the next 24 hours. Call the doctor if there is repeated vomiting, increasing headache, decreasing level of alertness, or any other worsening. Nausea or Vomiting, Nonspecific It's important to avoid dehydration. Sip clear liquids. Take increasing amounts of fluid over the first 24 hours. Then start small amounts of bland foods (such as dry toast, applesauce, mashed potato). Avoid aspirin, tobacco, and alcohol. Gradually resume your usual diet. If the vomiting worsens, if the problem that's making you vomit worsens, or if there's evidence of bleeding in the stomach (such as black, tarry stool, bloody or black vomit, or lightheadedness), you should return immediately. Call your doctor if you aren't improved in 24 to 36 hours. Referrals: ELIANE HOLLIS MD [Primary Care Provider] - Follow up as needed
[2020-05-15 16:24] VITALS: BP 106/82
== END 2020-05-15 16:24 | disposition home or self-care (01) ==
LOC: ER 14:20
DX: R11.2 Nausea with vomiting, unspecified (principal); F41.9 Anxiety disorder, unspecified; F32.9 Major depressive disorder, single episode, unspecified; F17.200 Nicotine dependence, unspecified, uncomplicated; F12.10 Cannabis abuse, uncomplicated; Z79.899 Other long term (current) drug therapy
CPT/HCPCS: 99283